=== PATIENT | female | born 1960 | race Hispanic/Latino ===

== ENCOUNTER 2018-04-20 17:48 | Emergency (ER) | payer OTHER, MEDICARE, SELFPAY ==
[2018-04-20 17:58] VITALS: BP 170/94; PULSE 122; RESP 15; TEMP 37; O2SAT 95
--- NOTE | 2018-04-20 18:02 | DI.RAD.S_ITS ---
PROCEDURE: XR CHEST 1V INDICATIONS: chest pain TECHNIQUE: One view of the chest was acquired. COMPARISON: None. FINDINGS: Surgical changes and devices: None. Lungs and pleura: No pleural effusions or pneumothorax. Lungs are clear. Mediastinum: Mediastinal contours appear normal. Heart size is normal. Bones and chest wall: No suspicious bony lesions. Overlying soft tissues appear unremarkable. IMPRESSION: Normal for age, source of current chest pain symptoms is not seen. Dictated by: Maxime Isaacs M.D. on 04/20/2018 at 18:42 Approved by: Maxime Isaacs M.D. on 04/20/2018 at 18:43
[2018-04-20 18:16] LABS: Add Manual Diff / Slide Review NO; Basophils Absolute Auto 100 /uL (0-100); Basophils Percent Auto 0.6 % (0-2); Eosinophils Absolute Auto 200 /uL (0-450); Hematocrit 40.8 % (36-46); Hemoglobin 14.3 g/dL (12.0-16.0); Lymphocytes Absolute Auto 2400 /uL (1100-4500); Lymphocytes Percent Auto 19.7 % (25-40); Mean Corpuscular Hemoglobin 30.1 PG (26-34); Mean Corpuscular Volume 86.1 fL (80-100); Monocytes Absolute Auto 500 /uL (0-900); Monocytes Percent Auto 3.9 % (3-14); Neutrophils Absolute Auto 9100 /uL (1500-7000); Neutrophils Percent Auto 73.8 % (50-75); Platelet Count 293 X10^3/uL (150-400); Red Blood Cell Count 4.74 X10^6/uL (4.0-5.2); Red Cell Distribution Width 13.1 % (11.6-14.8); White Blood Cell Count 12.3 X10^3/uL (4.5-11.0)
[2018-04-20 18:31] LABS: Alanine Aminotransferase 21 IU/L (9-52); Albumin 4.8 g/dL (3.5-5.0); Alkaline Phosphatase 129 U/L (38-126); Aspartate Aminotransferase 30 IU/L (14-36); BUN Creatinine Ratio 16.7 (6-22); Bilirubin Total 0.6 mg/dL (0.2-1.3); Blood Urea Nitrogen 10 mg/dL (7-17); Calcium 10.8 mg/dL (8.4-10.2); Carbon Dioxide 29 mmol/L (22-32); Chloride 99 mmol/L (98-107); Estimated Glomerular Filt Rate > 60.0 mL/min (>60); Globulin 4.7 g/dL (1.7-4.1); Glucose 135 mg/dL (70-100); HEMOLYSIS 28 (0-50); Potassium 3.2 mmol/L (3.4-5.1); Sodium 139 mmol/L (137-145); Total Protein 9.5 g/dL (6.3-8.2)
[2018-04-20 18:45] LABS: Troponin I < 0.012 ng/mL (0.01-0.034)
--- NOTE | 2018-04-20 19:02 | ED_ITS ---
HPI - Chest Pain General Chief Complaint: Chest Pain Stated Complaint: CHEST PAIN LEFT SIDE TOWRDS ARMS Time Seen by Provider: 04/20/18 18:03 Source: patient Mode of arrival: ambulatory Limitations: language barrier History of Present Illness HPI narrative: Patient is a 49-year-old female who presents with chest pain ongoing for last 4 days. She actually has had chest pain off and on for the last year however today it has been much worse. She gets flushing all over her body a radiates down to her legs. No shortness of breath no heart palpitations no nausea or diaphoresis. She is currently tachycardic is. she denies any dizziness or lightheadedness. She has not had any recent travel. No fever or productive cough. She is having some mild discomfort now. Related Data Home Medications Medication Instructions Recorded Confirmed aspirin 81 mg tablet,delayed 81 mg PO DAILY 12/31/17 12/31/17 release Previous Rx's Medication Instructions Recorded chlorthalidone 25 mg PO QDAY #90 tab 02/02/17 DISABLED PARKING PERMIT #1 each 12/31/17 tramadol 50 mg tablet 50 mg PO Q8H PRN #20 tab 12/31/17 Allergies Allergy/AdvReac Type Severity Reaction Status Date / Time trazodone [TRAZODONE] Allergy Mild numb face Verified 12/31/17 15:28 and mouth Review of Systems Review of Systems ROS Unobtainable: All systems reviewed & are unremarkable except as noted in HPI and below Constitutional Denies chills, Denies fever(s), Denies lethargy and Denies weakness ENT Ears, Nose, Mouth, and Throat: Denies change in voice, Denies neck pain and Denies sore throat Cardiovascular Denies chest pain, Denies syncope, Reports rapid heart rate, Denies pedal edema , Denies lightheadedness, Denies palpitations, Denies dyspnea, Denies dyspnea on exertion and Denies orthopnea Respiratory Denies cough, Denies dyspnea, Denies dyspnea on exertion and Denies wheezing Gastrointestinal Gastrointestinal: Denies abdominal pain, Denies change in bowel habits, Denies diarrhea, Denies nausea and Denies vomiting Musculoskeletal Denies neck pain Integumentary/Breasts Denies pruritus, Denies erythema, Denies rash and Denies wounds Neurologic Denies syncope and Denies weakness Endocrine Denies palpitations Allergic/Immunologic Denies wheezing [facility] Medical History Abnormal Pap smear of cervix (Chronic) Anemia (Chronic) GERD (gastroesophageal reflux disease) (Chronic) CTS (carpal tunnel syndrome) (Resolved 2009) Ovarian cyst (Resolved 1985) Surgical History Anesthesia (Resolved) History of carpal tunnel repair (Resolved 2009) History of oophorectomy, unilateral (Resolved 1985) Status post delivery (Resolved 05/2001) Status post knee surgery (Resolved 2012) History of bilateral salpingo-oophorectomy (BSO) (1985) Family History Father Hypertension Bronchitis Mother Diabetes mellitus Mental health problem Social History marital status: Smoking Status: Never smoker alcohol intake: current (ON OCCASION ) substance use type: does not use Exam Initial Vital Signs Initial Vital Signs: Vital Signs Temperature 98.6 F 04/20/18 17:58 Pulse Rate 122 H 04/20/18 17:58 Respiratory Rate 15 04/20/18 17:58 Blood Pressure 170/94 H 04/20/18 17:58 Pulse Oximetry 95 04/20/18 17:58 GENERAL: Well-appearing middle-aged woman in no acute distress HEENT: Head atraumatic,EOMI, pupils reactive, CARDIOVASCULAR: Tachycardic regular no murmur RESPIRATORY: Breath sounds equal bilaterally, no wheezes rales or rhonchi. ABDOMEN: Soft, nontender. Normoactive bowel sounds all 4 quadrants. No guarding or rebound. EXTREMITIES: Normal range of motion, no clubbing or edema. Neurovascularly intact NEUROLOGICAL: Alert and oriented x4.Normal gait and speech. Cranial nerves II through XII grossly intact. SKIN: Warm, dry, no laceration, no petechiae, no rashes or lesions. Scores HEART Score Heart Score history: Slightly Suspicious Heart Score EKG: Normal Heart Score Age: 45-64 years old Heart Score risk factors: 1-2 risk factors Heart Score troponin: < or = to normal limit Heart Score Total: 2 PERC Score Age greater than or equal to 50 years: Yes Heart rate greater than or equal to 100 bpm: Yes Room Air O2 Sat less than 95%: No Unilateral leg swelling: No Recent trauma or surgery: No Hemoptysis: No Prior PE or DVT: No Hormone Use: No Total PERC Score: 2 Course Orders Ordered: ED Orders 04/20/18 18:00 Complete Blood Count AUTO DIFF Stat Comprehensive Metabolic Panel Stat Creatine Kinase Stat D Dimer Stat Troponin I Stat 04/20/18 18:01 EKG-12 Lead Stat 04/20/18 18:02 Chest [XR chest 1V] Stat 04/20/18 18:40 Urine Culture Stat Urine Microscopic Stat Discontinued Medications Aspirin (Aspirin Chew) 324 mg PO NOW ONE Stop: 04/20/18 18:55 Last Admin: 04/20/18 19:20 Dose: 324 mg Sodium Chloride (Normal Saline 0.9%) 1,000 mls @ 1,000 mls/hr IV BOLUS ONE Stop: 04/20/18 19:51 Last Admin: 04/20/18 19:20 Dose: 1,000 mls/hr Vital Signs - 8 hr 04/20/18 17:58 04/20/18 19:40 04/20/18 20:00 Temperature 98.6 F Pulse Rate 122 H 81 91 H Respiratory Rate 15 19 15 Blood Pressure [Left Arm] 170/94 H 124/68 130/73 Pulse Oximetry 95 96 MDM - Chest Pain Lab Data Attestation: I reviewed the patient's lab results. Result diagrams: 04/20/18 18:00 04/20/18 18:00 Lab Results 04/20/18 04/20/18 04/20/18 Range/Units 18:00 18:00 18:00 WBC 12.3 H (4.5-11.0) X10^3/uL RBC 4.74 (4.0-5.2) X10^6/uL Hgb 14.3 (12.0-16.0) g/dL Hct 40.8 (36-46) % MCV 86.1 (80-100) fL MCH 30.1 (26-34) PG MCHC 35.0 (30-36) % RDW 13.1 (11.6-14.8) % Plt Count 293 (150-400) X10^3/uL Neut % (Auto) 73.8 (50-75) % Lymph % (Auto) 19.7 L (25-40) % Angelina % (Auto) 3.9 (3-14) % Eos % (Auto) 2.0 (2-4) % Baso % (Auto) 0.6 (0-2) % Neut # (Auto) 9100 H (4744-3595) /uL Lymph # (Auto) 2400 (3659-7877) /uL Angelina # (Auto) 500 (0-900) /uL Eos # (Auto) 200 (0-450) /uL Baso # (Auto) 100 (0-100) /uL D-Dimer < 200 (<230) ng/mL Sodium 139 (137-145) mmol/L Potassium 3.2 L (3.4-5.1) mmol/L Chloride 99 (98-107) mmol/L Carbon Dioxide 29 (22-32) mmol/L BUN 10 (7-17) mg/dL Creatinine 0.60 (0.52-1.04) mg/dL Estimated GFR > 60.0 (>60) mL/min BUN/Creatinine Ratio 16.7 (6-22) Glucose 135 H (70-100) mg/dL Calcium 10.8 H (8.4-10.2) mg/dL Total Bilirubin 0.6 (0.2-1.3) mg/dL AST 30 (14-36) IU/L ALT 21 (9-52) IU/L Alkaline Phosphatase 129 H (38-126) U/L Total Creatine Kinase (30-135) U/L Troponin I < 0.012 (0.01-0.034) ng/mL Total Protein 9.5 H (6.3-8.2) g/dL Albumin 4.8 (3.5-5.0) g/dL Globulin 4.7 H (1.7-4.1) g/dL Albumin/Globulin Ratio 1.0 (1.0-2.8) Urine RBC (0-5/HPF) Urine WBC (0-5/HPF) Ur Squamous Epith Cells Urine Bacteria (None) Ur Culture Indicated? 04/20/18 04/20/18 Range/Units 18:00 18:40 WBC (4.5-11.0) X10^3/uL RBC (4.0-5.2) X10^6/uL Hgb (12.0-16.0) g/dL Hct (36-46) % MCV (80-100) fL MCH (26-34) PG MCHC (30-36) % RDW (11.6-14.8) % Plt Count (150-400) X10^3/uL Neut % (Auto) (50-75) % Lymph % (Auto) (25-40) % Angelina % (Auto) (3-14) % Eos % (Auto) (2-4) % Baso % (Auto) (0-2) % Neut # (Auto) (8535-5807) /uL Lymph # (Auto) (5616-5548) /uL Angelina # (Auto) (0-900) /uL Eos # (Auto) (0-450) /uL Baso # (Auto) (0-100) /uL D-Dimer (<230) ng/mL Sodium (137-145) mmol/L Potassium (3.4-5.1) mmol/L Chloride (98-107) mmol/L Carbon Dioxide (22-32) mmol/L BUN (7-17) mg/dL Creatinine (0.52-1.04) mg/dL Estimated GFR (>60) mL/min BUN/Creatinine Ratio (6-22) Glucose (70-100) mg/dL Calcium (8.4-10.2) mg/dL Total Bilirubin (0.2-1.3) mg/dL AST (14-36) IU/L ALT (9-52) IU/L Alkaline Phosphatase (38-126) U/L Total Creatine Kinase 51 (30-135) U/L Troponin I (0.01-0.034) ng/mL Total Protein (6.3-8.2) g/dL Albumin (3.5-5.0) g/dL Globulin (1.7-4.1) g/dL Albumin/Globulin Ratio (1.0-2.8) Urine RBC 0-1/hpf (0-5/HPF) Urine WBC 1-5/hpf (0-5/HPF) Ur Squamous Epith Cells 1-5 /hpf Urine Bacteria Occasional (0-1) (None) Ur Culture Indicated? Specimen cultured Urine Dip Bedside Urine Glucose Negative Bedside Urine Bilirubin - Negative Bedside Urine Ketone - Negative Urine Specific [place] 1.010 Bedside Urine Occult Blood +/- Bedside Urine pH 6.5 Bedside Urine Protein - Negative Bedside Urine Urobilinogen - Negative Bedside Urine Nitrite - Negative Bedside Urine Leukocytes +/- 15 Esterase Imaging Data Chest x-ray: Radiologist's impression: PROCEDURE: XR CHEST 1V INDICATIONS: chest pain TECHNIQUE: One view of the chest was acquired. COMPARISON: None. FINDINGS: Surgical changes and devices: None. Lungs and pleura: No pleural effusions or pneumothorax. Lungs are clear. Mediastinum: Mediastinal contours appear normal. Heart size is normal. Bones and chest wall: No suspicious bony lesions. Overlying soft tissues appear unremarkable. IMPRESSION: Normal for age, source of current chest pain symptoms is not seen. Dictated by: Maxime Isaacs M.D. on 04/20/2018 at 18:42 ECG Data Attestation: I personally reviewed and interpreted this ECG as follows: Prior ECG tracings: not available for review Interpretation: Normal sinus rhythm rate [address] changes T-wave noted in lead 3 and AVF no T-wave inversions low voltage OK interval 166 MDM Narrative Medical decision making narrative: Patient has a negative troponin chest pain ongoing for last 4 days. She was quite tachycardic over her heart rate improved significantly with his IV fluids in time. D-dimer is negative. Low risk for any PE. The patient remains chest pain-free while in the ED. I discussed with patient and family need for further outpatient workup. She does have a primary care provider whom she sees regularly. I discussed warning signs of when to return to the ED. Family and patient both understand able to repeat back to me. Discharge Plan Departure Patient Disposition: Home Clinical Impression: Atypical chest pain Discharge Date/Time: 04/20/18 20:08 Interventions: ED Discharge Assessment Last Done: 04/20/18 20:08 Instructions: DI for Atypical Chest Pain Activity Restrictions/Additional Instructions: *You have been diagnosed with atypical chest pain *What to do: you still require a stress test with your primary care provider. *Continue to take medications as directed *Follow up with your primary care provider in 2-3 days *Return to ER if you should have new or worsening chest pain, heart palpitations, increased shortness of breath or any new, worsening or concerning symptoms Prescriptions: No Action chlorthalidone 25 MG tablet 25 mg PO QDAY Qty: 90 RF: 1 aspirin [Adult Low Dose Aspirin] 81 mg tablet,delayed release (DR/EC) 81 mg PO DAILY RF: 0 tramadol 50 mg tablet 50 mg PO Q8H PRN (Reason: pain) Qty: 20 RF: 0 DISABLED PARKING PERMIT .MEDSUPPLY Qty: 1 RF: 0 Referrals: Kirill Zacarias MD [Primary Care Provider] -
[2018-04-20 19:06] LABS: Creatine Kinase 51 U/L (30-135)
[2018-04-20 19:15] LABS: D Dimer < 200 ng/mL (<230)
[2018-04-20] MEDS: ASPIRIN 81 MG TAB 324 MG PO (19:20)
[2018-04-20] MEDS: SODIUM CHLORIDE 0.9% 1,000 ML 1000 ML IV (19:20)
[2018-04-20 19:37] LABS: Bacteria Urine Occasional (0-1); Culture Indicated Urine Specimen Cultured; RBC Urine 0-1/HPF (0-5/HPF); Squamous Epithelial Cell Urine 1-5 /HPF; WBC Urine 1-5/HPF (0-5/HPF)
[2018-04-20 19:40] VITALS: BP 124/68; PULSE 81; RESP 19; O2SAT 96
[2018-04-20 20:00] VITALS: BP 130/73; PULSE 91; RESP 15
== END 2018-04-20 20:08 | disposition home or self-care (01) ==
PROVIDERS: Nurse Practitioner Family; Emergency Provider Emergency Medicine; PCP Family Medicine
DX: R07.89 Other chest pain (principal)
CPT/HCPCS: 36591; 71045; 80053; 81003; 81015; 82550; 84484; 85025; 85379; 87077; 87086; 87147; 93005; 93010; 96360; 99283; 99285

== ENCOUNTER → 2018-05-20 13:32 | Outpatient (CLI) | payer OTHER, MEDICARE, SELFPAY ==
--- NOTE | 2018-05-20 13:35 | DI.NM.S_ITS ---
PROCEDURE: NM DENISE PERF SPECT R&S PHARM Rest and pharmacological stress myocardial perfusion SPECT with gated imaging and ejection fraction RADIOPHARMACEUTICAL: 26.6 mCi Tc-99m tetrafosmin IV at rest and 27.0 mCi Tc-99m tetrafosmin IV at peak effect of pharmacological stress. Cpv-amk-ssygicuh was performed. INDICATIONS: chest pain TECHNIQUE: Radiopharmaceutical was injected at peak stress test, and also at rest. SPECT images were obtained. SPECT myocardial perfusion images were displayed in short axis, horizontal long axis, and vertical long axis views. Gated images were reviewed using Proficiency software. COMPARISON: None. CARDIAC STRESS: A pharmacologic stress test was performed under the supervision of an attending staff, using an infusion of lexiscan 0.4mg IV X1. Hemodynamic data: There is normal blood pressure and heart rate response to pharmacologic stress. Symptoms: The patient denied anginal chest pain. Aminophylline: none EKG: Resting ECG shows sinus rhythm with minimal T wave changes. No diagnostic changes of ischemia with lexiscan; no ectopy. FINDINGS: Raw data: There is good myocardial uptake of radiotracer. No significant motion artifacts. Zobj-zm-ablor ratio is 0.36 (normal is less than 0.38 for tetrafosmin tracer). Left ventricle function: Gated images demonstrate normal left ventricular wall thickening. No segmental wall motion abnormalities. No transient ischemic dilation; TID is 0.61 (normal less than 1.3). Left ventricle resting end diastolic volume is 51 mL. Left ventricle stress ejection fraction is 94%; normal range is above 45%. Myocardial perfusion: There is normal distribution of activity in the right and left ventricular myocardium. No fixed or reversible perfusion defects. IMPRESSION: Low risk, pharmaceutical nuclear stress test. 1) Normal perfusion images with no evidence of ischemia or infarction. 2) Normal left ventricular size, wall motion, and systolic function (EF overcalculated at 94%). 3) No ECG evidence of ischemia. 4) No angina during the study. 5) No prior nuclear stress test available for comparison. Dictated by: Chantelle Butler MD on 05/21/2018 at 13:23 Approved by: Chantelle Butler MD on 05/21/2018 at 13:26
--- NOTE | 2018-05-20 15:00 | PM.TREADMILL ---
Cardiac Stress Test Report Referral & Results Date Patient Seen: 05/20/18 Requesting provider: Kirill Zacarias Indication: Atypical chest pain Rest ECG: Unremarkable Procedure Note: After both written and verbal informed consent the patient had an IV started by the diagnostic imaging RN, and then was hooked up to the treadmill monitoring system. The Lexiscan material, and then the Cardiolite tracer, were administered sequentially. An additional 3 min was spent monitoring the patient while supine on the gurney. The patient had a normal response to all infused materials. Impression: Normal response as above Somewhat tachycardic quickly Please see perfusion imaging for details regarding possible ischemia Please note: Actual ECG tracings can be found in the PACS system.
== END ==
PROVIDERS: PCP Family Medicine; Visit Provider Family Medicine
DX: R07.89 Other chest pain (principal)
CPT/HCPCS: 78452; 93016; 93017; 93018; A9502; J2785

== ENCOUNTER → 2018-10-12 12:32 | Outpatient (CLI) | payer OTHER, MEDICARE, SELFPAY ==
[2018-10-12 13:00] LABS: Hematocrit 34.9 % (36-46); Hemoglobin 11.6 g/dL (12.0-16.0); Mean Corpuscular HGB Conc 33.2 % (30-36); Mean Corpuscular Hemoglobin 30.2 PG (26-34); Mean Corpuscular Volume 90.9 fL (80-100); Platelet Count 335 X10^3/uL (150-400); Red Blood Cell Count 3.83 X10^6/uL (4.0-5.2); Red Cell Distribution Width 13.4 % (11.6-14.8); White Blood Cell Count 7.4 X10^3/uL (4.5-11.0)
[2018-10-12 13:42] LABS: Blood Urea Nitrogen 8 mg/dL (7-17); Calcium 10.6 mg/dL (8.4-10.2); Carbon Dioxide 28 mmol/L (22-32); Chloride 104 mmol/L (98-107); Estimated Glomerular Filt Rate > 60.0 mL/min (>60); Glucose 93 mg/dL (70-100); HEMOLYSIS < 15 (0-50); Potassium 4.7 mmol/L (3.4-5.1); Sodium 141 mmol/L (137-145)
== END ==
PROVIDERS: PCP Family Medicine; Visit Provider Family Medicine
DX: D72.819 Decreased white blood cell count, unspecified (principal); E87.6 Hypokalemia
CPT/HCPCS: 36415; 80048; 85027

== ENCOUNTER → 2019-01-06 08:54 | Outpatient (CLI) | payer OTHER, MEDICARE, SELFPAY ==
[2019-01-06 10:00] LABS: Cholesterol 184 mg/dL (140-199); HDL Cholesterol 73 mg/dL (40-60); LDL Cholesterol Calculated 96 mg/dL (<100); Triglycerides 73 mg/dL (35-150)
== END ==
PROVIDERS: PCP Family Medicine; Visit Provider Family Medicine
DX: E78.2 Mixed hyperlipidemia (principal)
CPT/HCPCS: 36415; 80061

== ENCOUNTER 2019-04-28 11:27 | Day surgery (SDC) | payer OTHER, MEDICARE, SELFPAY ==
[2019-04-28] VITALS (7 sets, daily range): BP systolic 124–146; BP diastolic 66–91; PULSE 69–84; RESP 14–20; TEMP 36.2–36.6; O2SAT 95–98; BMI 24.8
--- NOTE | 2019-04-28 | PATH_ITS ---
[facility] Accession Number: [id number] . 01 Material submitted: . esophagus, E-G Junction - GE JUNCTION . 02 Diagnosis: Gastroesophageal Junction, Biopsy: Squamous mucosa with no diagnostic abnormality. Intraepithelial eosinophils are not increased. Negative for dysplasia and malignancy. MRV 04/29/2019 1352 Local . 02 Electronically signed: . Malika Hankins MD, Pathologist NPI- [id number] . 01 Gross description: . GE JUNCTION: Received in formalin are 4 fragment(s) of sofia, soft tissue measuring 0.1 x 0.1 x 0.1 cm to 0.4 x 0.3 x 0.1 cm submitted entirely in 1 cassette(s) /[facility] [place] 04/28/2019 2305 Local . 02 Pathologist provided ICD-10: R13.10 . 02 CPT . 495536 Performed at: 01 [facility] [address] [facility], [place], [place] [id number] MD Clayton Vargas MD Phone: [phone] Performed at: 02 [facility] [address] [place], [place] [id number] MD Malika Hankins MD Phone: [phone]
[2019-04-28] MEDS: SODIUM CHLORIDE 0.9% 1,000 ML 200 ML IV (11:52)
--- NOTE | 2019-04-28 12:36 | PM.HP.1 ---
History of Present Illness History of Present Illness Date Patient Seen: 04/28/19 Time Patient Seen: 12:37 Chief complaint: [id number] Narrative: 58-year-old female with several months of progressive dysphagia to solid foods. Long history of gastroesophageal reflux disease. Endorses unintentional weight loss secondary to the to the dysphagia. Tolerating liquids. No acute abdominal pain, fevers or voice changes. Does not use tobacco or alcohol. Patient History Medical History Abnormal Pap smear of cervix (Chronic) Anemia (Chronic) CTS (carpal tunnel syndrome) (Resolved 2009) GERD (gastroesophageal reflux disease) (Chronic) Ovarian cyst (Resolved 1985) Surgical History Anesthesia (Resolved) History of bilateral salpingo-oophorectomy (BSO) (1985) History of carpal tunnel repair (Resolved 2009) History of oophorectomy, unilateral (Resolved 1985) Status post delivery (Resolved 05/2001) Status post knee surgery (Resolved 2012) Family & Social History Family History Father Hypertension Bronchitis Mother Diabetes mellitus Mental health problem Social History: household members family Tobacco & Substance use: Smoking Status Never smoker alcohol intake never Substance Use Type does not use Meds Home Medications and Allergies Home Medications Medication Instructions Recorded Confirmed Type DISABLED PARKING PERMIT #1 each 05/25/18 04/27/19 Rx calcium carbonate 600 mg calcium 600 mg PO DAILY tab 09/21/18 04/28/19 History (1,500 mg) tablet triamcinolone acetonide 0.1 % See Rx Instructions TOP BID #453.6 11/03/18 04/28/19 Rx topical cream gram omeprazole 20 mg capsule,delayed 40 mg PO DAILY #60 cap 03/10/19 04/28/19 Rx release Allergies Allergy/AdvReac Type Severity Reaction Status Date / Time rifampin Allergy Rash Verified 04/27/19 09:45 Review of Systems Review of Systems Narrative: A 10 point review of systems is negative except as noted in the HPI Exam Vital Signs (past 8 hours): - 04/28/19 12:01 Temperature 97.3 F L Pulse Rate 80 Respiratory Rate 15 Blood Pressure 124/66 Pulse Oximetry 97 Oxygen Delivery Method Room Air Narrative Exam Narrative: General-no acute distress, well nourished HEENT-moist mucous membranes, no scleral icterus Neck-supple, no lymphadenopathy Chest- non labored respirations, clear to auscultation bilaterally Cardiac-regular rate no peripheral edema Abdomen-soft, nontender, non distended Extremities-warm, well perfused Neurological-alert and oriented, no focal deficits Assessment & Plan Assessment and plan (1) Dysphagia: Current visit: Yes Status: Acute Assessment & Plan narrative: 58-year-old female with progressive dysphagia to solid food presents for a diagnostic esophagoduodenoscopy with possible dilation. We discussed the risks of the procedure including bleeding infection perforation need for further procedures. Her questions have been answered and she is in agreement with this plan.
[2019-04-28] MEDS: fentaNYL 250 MCG/5 ML INJ IV (12:39)
[2019-04-28] MEDS: MIDAZOLAM 5 MG/5 ML VIAL IV (12:40)
[2019-04-28] MEDS: LIDOCAINE 4% SOLN 50 ML 20 ML TOP (12:40)
--- NOTE | 2019-04-28 12:56 | PM.OP.ENDO ---
Operative Date/Time/Diagnoses Date of procedure: 04/28/19 Time of procedure: 12:56 Pre-op diagnosis: Dysphagia Post-op diagnosis: same Procedure & Clinicians Study performed: Esophagoduodenoscopy Same procedure as scheduled: Yes Indications: Progressive dysphagia to solid food Surgeon: Santiago Mike Procedure Notes SCOAP/Timeout: Performed Procedure in detail: Patient placed in left lateral decubitus position. Time out was performed. Procedural sedation was administered with Versed and Fentanyl. A bite block was placed. the scope was inserted into the mouth and advanced through the esophagus and into the stomach. The pylorus was intubated and the duodenum was normal. The scope was retroflexed within the stomach and there was a hiatal hernia. No ulcers, or gastritis. The scope was withdrawn into the esophagus the Z line was seen at 30 cm from the incisions. There was mild esophagitis there were no masses or strictures. 4 random biopsies of the Z line were taken with forceps. Stomach was desufflated and scope removed. Patient tolerated procedure well. Sedation minutes: 15 Findings: other findings (Esophagitis) Specimen(s): other (GE junction) Complications: none Impression: Esophagitis Post-procedure Recommendations: EGD in 6-8 weeks Disposition: same day surgery
--- NOTE | 2019-04-28 13:05 | PC.NURSE ---
50 MCG FENTANYL GIVEN AT 1247. UNABLE TO ADD LATE ENTRY
== END 2019-04-28 14:31 | disposition home or self-care (01) ==
PROVIDERS: PCP Family Medicine; Visit Provider Surgery
PROC: 0DJ08ZZ Inspection of Upper Intestinal Tract, Via Natural or Artificial Opening Endoscopic (ICD-10-PCS; CPT 43235; principal; 2019-04-28 12:30)
DX: R13.10 Dysphagia, unspecified (principal); R63.4 Abnormal weight loss; K44.9 Diaphragmatic hernia without obstruction or gangrene; K21.9 Gastro-esophageal reflux disease without esophagitis
CPT/HCPCS: 43239; 99152; J2250; J3010

== ENCOUNTER → 2019-06-08 08:52 | Outpatient (CLI) | payer OTHER, MEDICARE, SELFPAY ==
--- NOTE | 2019-06-08 | DI.MG.S_ITS ---
BILATERAL DIGITAL SCREENING MAMMOGRAM 3D/2D WITH CAD: 06/08/2019 CLINICAL: Routine screening. Comparison is made to exams dated: 05/27/2018 mammogram, 05/25/2017 mammogram, and 04/25/2016 mammogram - [facility]. The tissue of both breasts is heterogeneously dense. This may lower the sensitivity of mammography. Current study was also evaluated with a Computer Aided Detection (CAD) system. No significant masses, calcifications, or other findings are seen in either breast. There has been no significant interval change. IMPRESSION: NEGATIVE There is no mammographic evidence of malignancy. A 1 year screening mammogram is recommended. This exam was interpreted at Station ID: [id number]. NOTE: For mammograms, a report in lay terms will be sent to the patient. Approximately 15% of breast malignancies will not be visualized mammographically. In the management of a palpable breast mass, a negative mammogram must not discourage biopsy of a clinically suspicious lesion. Electronically Signed By: Elizabeth bear/blanka:06/09/2019 10:06:50 letter sent: Normal Exam ACR BI-RADS Category 1: Negative [id number]
== END ==
PROVIDERS: PCP Family Medicine; Referring Provider Family Medicine; Visit Provider Family Medicine
DX: Z12.31 Encounter for screening mammogram for malignant neoplasm of breast (principal)
CPT/HCPCS: 77063; 77067

== ENCOUNTER → 2019-08-02 10:58 | Outpatient (CLI) | payer OTHER, MEDICARE, SELFPAY ==
--- NOTE | 2019-08-02 | DI.RAD.S_ITS ---
PROCEDURE: XR KNEE RT 1TO2V INDICATIONS: RIGHT KNEE PAIN TECHNIQUE: 2 views of the knee were acquired. COMPARISON: [facility], MR, KNEE WITHOUT CONTRAST, 06/09/2013, 12:26. FINDINGS: Bones: There is tibial plateau fracture with internal fixation. Lucency in the tibial eminence may be secondary to healing or healed fracture. No suspicious bony lesions. There is osteopenia. Probable intra-articular bodies. Soft tissues: Small joint effusion. No suspicious soft tissue calcifications. IMPRESSION: 1. Tibial plateau fracture with internal fixation. Lucency in the tibial eminence may be secondary to healing or healed fracture. 2. Small knee joint effusion. 3. Possible intra-articular body. 4. Osteopenia. Dictated by: Johana Garza M.D. on 08/02/2019 at 11:57 Approved by: Johana Garza M.D. on 08/02/2019 at 12:02
== END ==
PROVIDERS: PCP Family Medicine; Referring Provider Registered Nurse; Visit Provider Registered Nurse
DX: M25.561 Pain in right knee (principal); S82.141P Displaced bicondylar fracture of right tibia, subsequent encounter for closed fracture with malunion; M25.461 Effusion, right knee; M85.861 Other specified disorders of bone density and structure, right lower leg
CPT/HCPCS: 73560

== ENCOUNTER → 2020-07-19 16:46 | Outpatient (CLI) | payer MEDICARE, SELFPAY ==
--- NOTE | 2020-07-19 | DI.MG.S_ITS ---
BILATERAL DIGITAL SCREENING MAMMOGRAM 3D/2D WITH CAD: 07/19/2020 CLINICAL: Routine screening. Comparison is made to exams dated: 06/08/2019 mammogram - [facility], 05/27/2018 mammogram, and 05/25/2017 mammogram - [facility]. The tissue of both breasts is heterogeneously dense. This may lower the sensitivity of mammography. Current study was also evaluated with a Computer Aided Detection (CAD) system. There are benign calcifications in both breasts. No significant masses, calcifications, or other findings are seen in either breast. There has been no significant interval change. IMPRESSION: BENIGN There is no mammographic evidence of malignancy. A 1 year screening mammogram is recommended. This exam was interpreted at Station ID: [id number]. NOTE: For mammograms, a report in lay terms will be sent to the patient. Approximately 15% of breast malignancies will not be visualized mammographically. In the management of a palpable breast mass, a negative mammogram must not discourage biopsy of a clinically suspicious lesion. Electronically Signed By: Hayden Carrera acr/penrad:07/19/2020 17:28:40 letter sent: Normal Exam ACR BI-RADS Category 2: Benign Finding(s) 3342F
== END ==
PROVIDERS: PCP Family Medicine; Referring Provider Family Medicine; Visit Provider Family Medicine
DX: Z12.31 Encounter for screening mammogram for malignant neoplasm of breast (principal)
CPT/HCPCS: 77063; 77067

== ENCOUNTER 2021-06-25 12:33 | Emergency (ER) | payer MEDICARE, SELFPAY ==
[2021-06-25] VITALS (8 sets, daily range): BP systolic 128–148; BP diastolic 61–90; PULSE 76–95; RESP 19; TEMP 36.6; O2SAT 97–100; BMI 34.4
--- NOTE | 2021-06-25 13:29 | ED_ITS ---
HPI - Extremity Problem General Chief complaint: Extremity Problem,Nontraumatic Stated complaint: LEG NUMBNESS SWELLING OF BOTH LEGS Time Seen by Provider: 06/25/21 13:15 Source: patient and family Mode of arrival: Ambulatory History of Present Illness HPI Narrative: 61-year-old female. She speaks very little Romansh so the translation line was used and then patient's daughter also provide translation over the phone. She is here in the emergency department because she was having swelling in both of her legs. This is been going on for the past several weeks. She is also expressing some shortness of breath with exertion. She has all her primary doctor today who ordered bilateral DVT ultrasounds which sounds like was initially intended to have happened as a outpatient however patient went to schedule a visit and there were no visits for quite some time so she came to the emergency department. She denies any chest pain. She does have a prescription for losartan and Lasix that was given to her by a provider in [place]. She does not currently have his medications with her. Does not appear to have a specific diagnosis of heart failure. Related Data Home Medications Medication Instructions Recorded Confirmed acetaminophen 500 mg tablet 1,000 mg PO Q6H PRN 05/16/19 05/16/19 (Tylenol Extra Strength) ibuprofen 600 mg tablet 600 mg PO Q8H PRN 05/16/19 05/16/19 Previous Rx's Medication Instructions Recorded DISABLED PARKING PERMIT #1 each 05/25/18 omeprazole 40 mg capsule,delayed 40 mg PO DAILY #100 cap 10/27/19 release triamcinolone acetonide 0.1 % See Rx Instructions TOP BID #453.6 02/13/20 topical cream gram furosemide 20 mg tablet (Lasix) 20 mg PO DAILY #30 tab 06/25/21 losartan 50 mg tablet 50 mg PO DAILY #30 tab 06/25/21 Allergies Allergy/AdvReac Type Severity Reaction Status Date / Time rifampin Allergy Rash Verified 06/25/21 12:48 Review of Systems Constitutional Constitutional: Reports system reviewed and no additional complaints, except as documented Cardiovascular Cardiovascular: Denies chest pain and Reports dyspnea Respiratory Respiratory: Reports dyspnea Musculoskeletal Musculoskeletal: Reports system reviewed and no additional complaints, except as documented and Reports as per HPI Integumentary/Breasts Skin/Breast: Reports system reviewed and no additional complaints, except as documented Neurologic Neurologic: Reports system reviewed and no additional complaints, except as documented Hematologic/Lymphatic On Anticoagulants: No Patient History Medical History Abnormal Pap smear of cervix Anemia CTS (carpal tunnel syndrome) (2009) GERD (gastroesophageal reflux disease) Ovarian cyst (1985) Surgical History Anesthesia History of bilateral salpingo-oophorectomy (BSO) (1985) History of carpal tunnel repair (2009) History of oophorectomy, unilateral (1985) Status post delivery (05/2001) Status post knee surgery (2012) Family History Father Hypertension Bronchitis Mother Diabetes mellitus Mental health problem Social History marital status: household members: family Smoking Status: Never smoker alcohol intake: never substance use type: does not use Smoking Status: Never smoker Substance Use Type: does not use Exam Initial Vital Signs Initial Vital Signs: Vital Signs Temperature 97.8 F 06/25/21 12:42 Pulse Rate 89 06/25/21 12:42 Respiratory Rate 19 06/25/21 12:42 Blood Pressure 148/72 H 06/25/21 12:42 Pulse Oximetry 98 06/25/21 12:42 Const General: cooperative and comfortable HENMT Head: normal to inspection Resp Effort & Inspection: normal respiratory effort Auscultation: clear to auscultation bilaterally Cardio Rate: regular rate Rhythm: regular rhythm Skin General: no rashes or lesions noted Neuro General: patient alert, patient awake and moves all extremities Extrem General: edema Course Orders Ordered: ED Orders 06/25/21 13:30 XR chest 1V Stat 06/25/21 13:57 US periph venous low extrem bi Stat Vital Signs Vital signs: Vital Signs - 8 hr 06/25/21 12:42 06/25/21 12:59 06/25/21 13:00 Temperature 97.8 F Pulse Rate 89 95 H 93 H Respiratory Rate 19 Blood Pressure 148/72 H Pulse Oximetry 98 97 97 06/25/21 13:01 06/25/21 13:30 06/25/21 14:00 Temperature Pulse Rate 93 H 89 77 Respiratory Rate Blood Pressure 128/61 132/71 131/62 Pulse Oximetry 98 99 100 06/25/21 14:57 06/25/21 15:00 Temperature Pulse Rate 82 76 Respiratory Rate Blood Pressure 134/90 Pulse Oximetry 99 99 MDM - Extremity (Nontraumatic) Imaging Data Chest x-ray: Radiologist's Impression: [address] [address] XRay Report Signed Patient: Carolina Beck MR#: [id number] : 1960 Acct:[id number] Age/Sex: 61 / F Date of Service: 06/25/21 Loc: ED Accession Number: [id number] ?? Procedure: XR chest 1V Ordering Provider: Winston Hagen D.O. PROCEDURE:? XR CHEST 1V ? INDICATIONS:? SOB ? TECHNIQUE:? One view of the chest was acquired.? ? COMPARISON:? [facility], , XR CHEST 1V, 04/20/2018, 18:08. ? FINDINGS:? ? Surgical changes and devices:? None.? ? Lungs and pleura:? Mild pulmonary vascular congestion is noted.? No focal infiltrate..? No pleural effusions or pneumothorax.? ? Mediastinum:? Mildly tortuous thoracic aorta is seen .? Heart size is borderline enlarged. ? Bones and chest wall:? No suspicious bony lesions.? Overlying soft tissues appear unremarkable.? ? IMPRESSION:? Cardiomegaly and mild congestion.? No focal infiltrate, pleural effusion or pneumothorax. ? ? Dictated by: Jef Albarran M.D. on 06/25/2021 at 14:05 ? ? Approved by: Jef Albarran M.D. on 06/25/2021 at 14:09?? US - DVT: Radiologist's Impression: [address] [address] Ultrasound Report Signed Patient: Carolina Beck MR#: [id number] : 1960 Acct:[id number] Age/Sex: 61 / F Date of Service: 06/25/21 Loc: ED Accession Number: [id number] ?? Procedure: US periph venous low extrem bi Ordering Provider: Winston Hagen D.O. PROCEDURE:? US PERIPH VENOUS LOW EXTREM BI ? INDICATIONS:? EDEMA ? TECHNIQUE:? Real-time imaging, as well as color and pulse Doppler interrogation, were performed of the deep veins of both legs from the inguinal ligament to the popliteal fossa.? ? COMPARISON:? None. ? FINDINGS:? ? Right: The common femoral, femoral and popliteal veins are normally compressible, and free of intraluminal thrombus.? Color and pulse Doppler demonstrate normal phasic intravascular flow.? There is normal augmentation response to distal compression maneuver.? ? Left: The common femoral, femoral and popliteal veins are normally compressible, and free of intraluminal thrombus.? Color and pulse Doppler demonstrate normal phasic intravascular flow.? There is normal augmentation response to distal compression maneuver.? ? ? IMPRESSION:? ? 1. No evidence of deep venous thrombosis in the right or left lower extremity. ? ? Dictated by: Clayton Karimi M.D. on 06/25/2021 at 14:29 ? ? Approved by: Clayton Karimi M.D. on 06/25/2021 at 14:30? MDM Narrative Medical decision making narrative: Patient is not tachypneic. She is not hypoxic. Does have chest x-ray findings concerning for edema and she does have lower extremity edema. There is no indication of any DVT. No signs of cellulitis. Will start the patient on Lasix. I did fill her losartan as well. Will have her contact her primary doctor for further workup. She was given return precautions. She expressed understanding agreement. Discharge Plan Departure Patient Disposition: Home Clinical Impression: Edema Instructions: Edema Activity Restrictions/Additional Instructions: Take all of the medications as directed. Contact your primary doctor for a follow-up. Return to the emergency department for any new or worsening symptoms. Prescriptions: New losartan 50 mg tablet 50 mg PO DAILY Qty: 30 0RF furosemide [Lasix] 20 mg tablet 20 mg PO DAILY Qty: 30 0RF No Action ibuprofen 600 mg tablet 600 mg PO Q8H PRN0RF acetaminophen [Tylenol Extra Strength] 500 mg tablet 1,000 mg PO Q6H PRN0RF omeprazole 40 mg capsule,delayed release(DR/EC) 40 mg PO DAILY Qty: 100 0RF triamcinolone acetonide 0.1 % cream See Rx Instructions TOP BID Qty: 453.6 1RF Dose Instruction: 1 mg topically bid TOP BID Rx Instructions: 1 mg topically bid TOP BID for itching (DME) DISABLED PARKING PERMIT 0 .ROUTE .MEDSUPPLY Qty: 1 0RF Rx Instructions: I find this patient to be medically disabled and qualified for disabled parking as indicated, and signed, on the accompanying Disabled Parking Application for Individuals. Referrals: Kirill Zacarias MD [Primary Care Provider] -
--- NOTE | 2021-06-25 13:30 | DI.RAD.S_ITS ---
PROCEDURE: XR CHEST 1V INDICATIONS: SOB TECHNIQUE: One view of the chest was acquired. COMPARISON: [facility], CR, XR CHEST 1V, 04/20/2018, 18:08. FINDINGS: Surgical changes and devices: None. Lungs and pleura: Mild pulmonary vascular congestion is noted. No focal infiltrate.. No pleural effusions or pneumothorax. Mediastinum: Mildly tortuous thoracic aorta is seen . Heart size is borderline enlarged. Bones and chest wall: No suspicious bony lesions. Overlying soft tissues appear unremarkable. IMPRESSION: Cardiomegaly and mild congestion. No focal infiltrate, pleural effusion or pneumothorax. Dictated by: Jef Albarran M.D. on 06/25/2021 at 14:05 Approved by: Jef Albarran M.D. on 06/25/2021 at 14:09
--- NOTE | 2021-06-25 13:57 | DI.US.S_ITS ---
PROCEDURE: US PERIPH VENOUS LOW EXTREM BI INDICATIONS: EDEMA TECHNIQUE: Real-time imaging, as well as color and pulse Doppler interrogation, were performed of the deep veins of both legs from the inguinal ligament to the popliteal fossa. COMPARISON: None. FINDINGS: Right: The common femoral, femoral and popliteal veins are normally compressible, and free of intraluminal thrombus. Color and pulse Doppler demonstrate normal phasic intravascular flow. There is normal augmentation response to distal compression maneuver. Left: The common femoral, femoral and popliteal veins are normally compressible, and free of intraluminal thrombus. Color and pulse Doppler demonstrate normal phasic intravascular flow. There is normal augmentation response to distal compression maneuver. IMPRESSION: 1. No evidence of deep venous thrombosis in the right or left lower extremity. Dictated by: Clayton Karimi M.D. on 06/25/2021 at 14:29 Approved by: Clayton Karimi M.D. on 06/25/2021 at 14:30
== END 2021-06-25 15:02 | disposition home or self-care (01) ==
PROVIDERS: Emergency Provider Emergency Medicine; PCP Family Medicine
DX: R60.0 Localized edema (principal)
CPT/HCPCS: 71045; 93970; 99283; 99284

== ENCOUNTER → 2021-07-23 11:52 | Outpatient (CLI) | payer MEDICARE, SELFPAY ==
--- NOTE | 2021-07-23 11:55 | DI.MG.S_ITS ---
BILATERAL DIGITAL SCREENING MAMMOGRAM 3D/2D WITH CAD: 07/23/2021 CLINICAL: Routine screening. Comparison is made to exams dated: 07/19/2020 mammogram, 06/08/2019 mammogram - [facility], and 05/27/2018 mammogram - [facility]. There are scattered fibroglandular elements in both breasts. Current study was also evaluated with a Computer Aided Detection (CAD) system. There are benign calcifications in both breasts. No significant masses, calcifications, or other findings are seen in either breast. There has been no significant interval change. IMPRESSION: BENIGN There is no mammographic evidence of malignancy. A 1 year screening mammogram is recommended. This exam was interpreted at Station ID: [id number]. NOTE: For mammograms, a report in lay terms will be sent to the patient. Approximately 15% of breast malignancies will not be visualized mammographically. In the management of a palpable breast mass, a negative mammogram must not discourage biopsy of a clinically suspicious lesion. Electronically Signed By: Emily villavicencio/blanka:07/23/2021 13:17:07 letter sent: Normal Exam ACR BI-RADS Category 2: Benign Finding(s) 3342F
== END ==
PROVIDERS: PCP Family Medicine; Referring Provider Family Medicine; Visit Provider Family Medicine
DX: Z12.31 Encounter for screening mammogram for malignant neoplasm of breast (principal)
CPT/HCPCS: 77063; 77067

== ENCOUNTER → 2022-07-25 12:42 | Outpatient (CLI) | payer OTHER, SELFPAY ==
--- NOTE | 2022-07-25 | DI.MG.S_ITS ---
BILATERAL DIGITAL SCREENING MAMMOGRAM 3D/2D WITH CAD: 07/25/2022 CLINICAL: Routine screening. Comparison is made to exams dated: 07/23/2021 mammogram, 07/19/2020 mammogram, and 06/08/2019 mammogram - [facility]. There are scattered areas of fibroglandular density in both breasts (category b / 25%-50% glandular tissue). Current study was also evaluated with a Computer Aided Detection (CAD) system. There are benign calcifications in both breasts. No significant masses, calcifications, or other findings are seen in either breast. There has been no significant interval change. IMPRESSION: BENIGN There is no mammographic evidence of malignancy. A 1 year screening mammogram is recommended. Based on the Tyrer Cuzick model (a risk assessment model) the patient's lifetime risk is 6.2% and her 10 year risk is 2.7%. According to the ACR, ACS, and NCCN guidelines, an annual breast MRI exam along with mammogram is recommended if the patient's lifetime risk is 20% or greater. This exam was interpreted at Station ID: [id number]. NOTE: For mammograms, a report in lay terms will be sent to the patient. Approximately 15% of breast malignancies will not be visualized mammographically. In the management of a palpable breast mass, a negative mammogram must not discourage biopsy of a clinically suspicious lesion. Electronically Signed By: Emily [email or web address]/[email or web address]:07/25/2022 15:42:30 letter sent: Normal Exam ACR BI-RADS Category 2: Benign Finding(s) 3342F
== END ==
PROVIDERS: PCP Family Medicine; Referring Provider Internal Medicine; Visit Provider Internal Medicine
DX: Z12.31 Encounter for screening mammogram for malignant neoplasm of breast (principal)
CPT/HCPCS: 77063; 77067

== ENCOUNTER → 2022-12-04 09:18 | Outpatient (CLI) | payer OTHER, SELFPAY ==
--- NOTE | 2022-12-04 | DI.RAD.S_ITS ---
PROCEDURE: XR KNEE RT 3V INDICATIONS: KNEE PAIN TECHNIQUE: 3 views of the knee were acquired. COMPARISON: [facility], CR, XR KNEE RT 1TO2V, 08/02/2019, 10:08. FINDINGS: Bones: Generalized decreased osseous mineralization noted. Proximal tibial instrumentation remains unchanged. No evidence of hardware failure or loosening. Soft tissues: Small joint effusion IMPRESSION: Stable proximal tibial instrumentation, osteopenia and arthritic changes Approved by: Ye Watkins M.D. on 12/04/2022 at 13:40
== END ==
PROVIDERS: PCP Family Medicine; Referring Provider Internal Medicine; Visit Provider Internal Medicine
DX: M85.861 Other specified disorders of bone density and structure, right lower leg (principal); M25.561 Pain in right knee; G89.29 Other chronic pain
CPT/HCPCS: 73562

== ENCOUNTER → 2023-04-07 15:12 | Outpatient (CLI) | payer OTHER, SELFPAY ==
--- NOTE | 2023-04-07 15:18 | DI.RAD.S_ITS ---
PROCEDURE: XR FOOT LT MIN 3V INDICATIONS: LEFT FOOT PAIN TECHNIQUE: 3 views of the foot were acquired. COMPARISON: None. FINDINGS: Bones: No fractures or dislocations. No suspicious bony lesions. Soft tissues: No tibiotalar joint effusion. Achilles tendon appears normal. IMPRESSION: No acute bony abnormality. Dictated by: Jose Lorenzo M.D. on 04/07/2023 at 16:25 Approved by: Jose Lorenzo M.D. on 04/07/2023 at 16:26
== END ==
PROVIDERS: PCP Family Medicine; Referring Provider Internal Medicine; Visit Provider Internal Medicine
DX: M79.672 Pain in left foot (principal)
CPT/HCPCS: 73630

== ENCOUNTER → 2023-07-27 15:47 | Outpatient (CLI) | payer OTHER, SELFPAY ==
--- NOTE | 2023-07-27 | DI.MG.S_ITS ---
BILATERAL DIGITAL SCREENING MAMMOGRAM 3D/2D WITH CAD: 07/27/2023 CLINICAL: Routine screening. Comparison is made to exams dated: 07/25/2022 mammogram, 07/23/2021 mammogram, and 07/19/2020 mammogram - [facility]. There are scattered areas of fibroglandular density in both breasts (category b / 25%-50% glandular tissue). Current study was also evaluated with a Computer Aided Detection (CAD) system. There are benign calcifications in both breasts. No significant masses, calcifications, or other findings are seen in either breast. There has been no significant interval change. IMPRESSION: BENIGN There is no mammographic evidence of malignancy. A 1 year screening mammogram is recommended. Based on the Tyrer Cuzick model (a risk assessment model) the patient's lifetime risk is 5.9% and her 10 year risk is 2.7%. According to the ACR, ACS, and NCCN guidelines, an annual breast MRI exam along with mammogram is recommended if the patient's lifetime risk is 20% or greater. This exam was interpreted at Station ID: Unknown. NOTE: For mammograms, a report in lay terms will be sent to the patient. Approximately 15% of breast malignancies will not be visualized mammographically. In the management of a palpable breast mass, a negative mammogram must not discourage biopsy of a clinically suspicious lesion. Electronically Signed By: Dawson hoyos/blanka:07/28/2023 11:04:28 letter sent: Normal Exam ACR BI-RADS Category 2: Benign Finding(s) 3342F
== END ==
PROVIDERS: PCP Internal Medicine; Referring Provider Internal Medicine; Visit Provider Internal Medicine
DX: Z12.31 Encounter for screening mammogram for malignant neoplasm of breast (principal); R92.323 Mammographic fibroglandular density, bilateral breasts
CPT/HCPCS: 77063; 77067

== ENCOUNTER → 2025-02-06 13:48 | Outpatient (CLI) | payer MEDICARE, SELFPAY ==
--- NOTE | 2025-02-06 13:49 | DI.MG.S_ITS ---
MM screening mammo BI: 02/06/2025. BI-RADS: 1
--- NOTE | 2025-02-06 13:49 | DI.RAD.S_ITS ---
PROCEDURE: XR DEXA AXIAL SKELETON
== END ==
PROVIDERS: PCP Family Medicine; Referring Provider Family Medicine; Visit Provider Family Medicine
DX: Z12.31 Encounter for screening mammogram for malignant neoplasm of breast (principal); M85.89 Other specified disorders of bone density and structure, multiple sites; Z78.0 Asymptomatic menopausal state
CPT/HCPCS: 77063; 77067; 77080